=== PATIENT | male | born 1960 | race Caucasian/White ===

== ENCOUNTER 2018-06-21 05:32 | Day surgery (SDC) | payer OTHER ==
[~2018-06-21] VITALS: Ht 195.6 cm; Wt 115.7 kg
--- NOTE | ~2018-06-21 | H ---
[facility] [place] [address] HISTORY AND PHYSICAL Name: LAITH SUNSHINE Room #: 150-16 [facility] M.R.#: [id number] Admission: 06/21/18 Attend Phys: Shaun Dueñas MD Discharge: Date of : 56 Report #: [id number] THIS REPORT FOR: //name// CC: Anthony Dueñas Patient of Dr. Anthony Cruz Jr. and Dr. Shaun Dueñas. DATE OF SURGERY: 06/21/2018. CHIEF COMPLAINT: "Bulge in my groin." HISTORY OF PRESENT ILLNESS: The patient is a 58-year-old white male, several years ago noticed a bulge in the right groin. It has gradually been getting larger. He denies any pain. No changes in bowel habits. No acute urinary changes. He has never had a colonoscopy before. He did have a laparoscopic left inguinal hernia repair about [address] Vel Eckert in [facility]. Recently saw Dr. Cruz who recommended surgical consultation. PAST MEDICAL HISTORY: Hypertension, appendectomy in 1975. Laparoscopic hernia repair by Dr. Eckert in 1984. MEDICATIONS: Avalide. ALLERGIES: PENICILLIN. FAMILY HISTORY: Father with history of COPD. Mother with a history of cardiovascular disease. SOCIAL HISTORY: , does not smoke, drinks alcohol occasionally. REVIEW OF SYSTEMS: Pertinent positives as above. Full review of systems otherwise negative. PHYSICAL EXAMINATION: GENERAL: This is a well-developed, well-nourished white male, in no acute distress. VITAL SIGNS: Stable. He is afebrile. HEENT: Sclerae are nonicteric. Mucous membranes moist and pink. NECK: There is no adenopathy, no thyromegaly. LUNGS: Clear to auscultation bilaterally. Normal excursion. CARDIOVASCULAR: Regular rate and rhythm. No murmurs, S3, S4, no PMI. ABDOMEN: Soft, flat, nontender, no palpable mass, no organomegaly. He does have an umbilical hernia. GENITOURINARY: Normal scrotum, phallus and testes. There is a healed left inguinal hernia repair with no evidence of recurrence. There was a moderate to large right inguinal hernia, which is partially reducible. [address] [address] HISTORY AND PHYSICAL Name: LAITH SUNSHINE Room #: 150-[address] [place] [address] M.R.#: [id number] Admission: 06/21/18 Attend Phys: Shaun Dueñas MD Discharge: Date of : 56 Report #: [id number] EXTREMITIES: No clubbing, cyanosis or edema. NEUROLOGIC: Intact with a clear mental status. IMPRESSION: A 58-year-old white male with an umbilical and right inguinal hernia. I fully discussed with the patient the diagnosis, prognosis and treatment options. I have recommended a right inguinal hernia and umbilical hernia repair. He states he understands and agrees to proposed surgery. PLAN: I will perform a right inguinal hernia repair and umbilical hernia repair under local IV sedation as an outpatient at [facility]. The procedure and its risks, benefits, possible complications fully discussed with the patient, he states he understands and agrees to proposed surgery. <ELECTRONICALLY SIGNED> By: Shaun Dueñas MD 06/21/18 1344 1028 1051 Shaun Dueñas MD /nt
--- NOTE | ~2018-06-21 | PATH ---
[facility] [address] [place] [address] PATHOLOGY RPT PROCEDURE Name: LAITH JEFFERSON Room #: DEP [facility] M.R.#: [id number] Admission: 06/21/18 Date of : 56 Discharge: 06/21/18 Report #: [id number] Path Case #: [id number] [facility] Accession Number: [id number] . 01 Material submitted: . INCARCERATED UMBILICAL HERNIA SAC . 01 Clinical history: . Umbilical hernia, inguinal right hernia . 02 Diagnosis: Fibrovascular connective tissue, incarcerated umbilical hernia sac, repair: - Moderate acute and chronic inflammation along with granulomatous inflammation (non-necrotizing granulomata). LBQ/06/22/2018 . 02 Comment: Acid fast bacillus and Gomori methenamine silver stains performed on block A1 are negative for mycobacterial as well as fungal elements, respectively. (IUV/db; 06/22/18) . 02 Electronically signed: . Silvana Camejo MD, Pathologist NPI- [id number] . 01 Gross description: . The specimen is received in formalin, labeled "Laith Jefferson, incarcerated umbilical hernia sac" and consists of a segment of yellow-cerna soft tissue measuring 3.1 x 3.1 x 1.3 cm. Sectioning reveals membranous pink-bolivar tissue which is encased with yellow adipose tissue and no nodules or mass lesions. Control Tower Operator sections are submitted in A1. (SDY; 06/21/2018) SYU/SYU . 02 Pathologist provided ICD-10: K42.0, L92.9 . 02 CPT . 785652, 301026, 918065 Specimen Comment: A courtesy copy of this report has been sent to Specimen Comment: [phone], . Specimen Comment: Report sent to / DR PRESCOTT Performed at: [place] [address] PATHOLOGY RPT PROCEDURE Name: LAITH JEFFERSON Room #: DEP [facility].#: [id number] Admission: 06/21/18 Date of : 56 Discharge: 06/21/18 Report #: [id number] Path Case #: [id number] [address] [facility] [address], [place], [place] [id number] MD Josias Knapp MD Phone: [phone] Performed at: [facility] [id number] MD Silvana Camejo MD Phone: [phone]
--- NOTE | ~2018-06-21 | O ---
[facility] [place] [address] OPERATIVE REPORT Name: LAITH SUNSHINE Room #: 150-16 [facility] M.R.#: [id number] Admission: 06/21/18 Attend Phys: Shaun Dueñas MD Discharge: Date of : 56 Report #: [id number] THIS REPORT FOR: //name// CC: Anthony Dueñas DATE OF SERVICE: 06/21/[address] Anthony Cruz Jr. and Dr. Shaun uDeñas MD PREOPERATIVE DIAGNOSIS: Right inguinal hernia and an incarcerated umbilical hernia. POSTOPERATIVE DIAGNOSIS: Right inguinal hernia and an incarcerated umbilical hernia. PROCEDURE: Right inguinal hernia repair with Prolene hernia system mesh and repair of an incarcerated umbilical hernia. SURGEON: Shaun Dueñas MD ANESTHESIA: Local IV sedation. DESCRIPTION OF PROCEDURE: The patient was brought to the operating room and placed on operative table in the supine position. Sequential compression devices were in place for DVT prophylaxis. There was no indication for preoperative antibiotics. The patient underwent IV sedation and the abdomen and the right inguinal area prepped and draped in a sterile fashion. Skin and subcutaneous tissue overlying the right inguinal area was then infiltrated with 0.5% Marcaine and 1% Xylocaine in a 1:1 mixture after placing 4 towels around this area. Right inguinal skin incision was then performed using #10 scalpel blade. Hemostasis obtained using electrocautery. Dissection was carried down through subcutaneous tissue, the external oblique fascia, which was then incised with a knife and opened with the Metzenbaum scissors. The ilioinguinal nerve was identified, dissected free, injected with local mixture and preserved. Cord was then elevated and held in place with a [place]ham drain. Cremasteric muscle fibers were then split in the direction of their fibers using clamp and electrocautery. There was no evidence of any indirect inguinal hernia sac. The floor was inspected and there was a moderate to large sized direct inguinal hernia defect. This hernia sac was dissected free from the cord and then incised just above the level of floor and reduced back through the floor into the preperitoneal space. This preperitoneal space was then developed using blunt dissection and an extended Prolene hernia system mesh was then inserted through the floor and the underlay patch was then deployed in the preperitoneal space. The connector was left in the floor and the floor was then tightened [address] [address] OPERATIVE REPORT Name: LAITH SUNSHINE Room #: 150-16 [facility] Karla#: [id number] Admission: 06/21/18 Attend Phys: Shaun Dueñas MD Discharge: Date of : 56 Report #: [id number] around the connector using running 2-0 Prolene two layer shouldice repair. The overlay patch was then deployed into the inguinal canal, secured at the pubic tubercle with the same running 2-0 Prolene suture. The mesh was then secured superiorly at the connector using simple interrupted 2-0 Vicryl sutures. The mesh was then split and wrapped around the cord, secured to the inguinal ligament with simple interrupted 2-0 Vicryl suture. The cord and the ilioinguinal nerve then returned to the canal intact. The external oblique fascia was then closed using running 2-0 Vicryl suture. Asael's fascia was then reapproximated using 3 simple interrupted 2-0 chromic sutures and the skin then closed with a running 4-0 subcuticular Vicryl stitch. Attention was then turned to the umbilicus which was then infiltrated with same local mixture. An infraumbilical transverse skin incision was then performed using #15 scalpel blade. Hemostasis obtained using electrocautery. Dissection was carried down through subcutaneous tissue to this incarcerated umbilical hernia sac, which was dissected free, excised and sent to pathology as permanent study. The fascial defect was then easily closed with a [id number]-rv-hufof #0 Prolene suture. Deep and superficial subcutaneous tissue was then reapproximated using simple interrupted 2-0 chromic sutures and the skin then closed with a running 4-0 subcuticular Vicryl stitch. Both wounds were then dressed. The inguinal wound was dressed with Mastisol, 1/2-inch Steri-Strips cut in half, Telfa, 4 x 4 gauze, sponge and tape. The umbilical wound was then dressed with Dermabond, Telfa, 4 x 4 gauze, sponge and tape. The patient was then taken to the recovery room awake, alert and in good condition. Estimated blood loss was approximately 10 mL, total for both procedures. The patient tolerated procedure well. All sponge, lap and instrument counts correct x 3. <ELECTRONICALLY SIGNED> By: Shaun Dueñas MD 06/21/18 1344 1121 1224 Shaun Dueñas MD /nt
--- NOTE | ~2018-06-21 | EKG ---
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
[~2018-06-21 05:32] MED LIST: IRBESARTAN-HCT1 EAC1 PO; NORVASC2.5 MG PO
[2018-06-21 07:25] LABS: CALCIUM 9.1 mg/dL (8.5-10.1); CREATININE 1.2 mg/dL (0.7-1.3); POTASSIUM 3.5 mmol/L (3.5-5.1)
[2018-06-21 08:00] VITALS: BP 157/80
[2018-06-21] MEDS ORDERED: NORCO 5-325 TA1 EACH PO (11:24)
[2018-06-21 11:35] VITALS: BP 157/80
== END 2018-06-21 12:25 | disposition home or self-care (01) ==
LOC: OR 05:32 → TBA 05:32 → OR 08:00
PROVIDERS: Surgery
DX: K40.90 Unilateral inguinal hernia, without obstruction or gangrene, not specified as recurrent (principal); K42.0 Umbilical hernia with obstruction, without gangrene; I10 Essential (primary) hypertension; Z79.899 Other long term (current) drug therapy; Z90.49 Acquired absence of other specified parts of digestive tract
CPT/HCPCS: 50010; 50101; 50386; 50417; 54111; 54118; 56524; 56525; 56526; 56528; 62110; 62900; 70005